=== PATIENT | male | born 1995 | race Caucasian/White ===

== ENCOUNTER 2024-08-04 17:07 | Inpatient (IN) | payer SELFPAY ==
[2024-08-04 17:09] VITALS: BP 103/77; PULSE 98; RESP 18; TEMP 36.6; O2SAT 100; BMI 20.3
--- NOTE | 2024-08-04 17:21 | EX.ED.DYSGE1 ---
HPI <DANISHA Oakley - Last Filed: 08/04/24 18:16> History of Present Illness Chief Complaint: Substance Abuse Narrative Narrative: 28-year-old male presents requesting detox from heroin. He states for the last year he has been smoking heroin. He states he smokes it almost all day long with last use yesterday morning. He denies IV drug use. He smokes 2 packs/day of cigarettes, denies alcohol use. He states he feels nauseous but otherwise has no symptoms. He has not gone through detox in the past. PFSH <DANISHA Oakley - Last Filed: 08/04/24 18:16> PFSH Allergy/AdvReac Type Severity Reaction Status Date / Time Penicillins Allergy Anaphylaxis Verified 08/04/24 17:09 Social History Smoking Status: Current every day smoker tobacco type: cigarettes ROS <DANISHA Oakley - Last Filed: 08/04/24 18:16> ROS ED ROS Narrative Constitutional: Negative for fever, chills, malaise. CVS: Negative for chest pain, palpitations. Respiratory: Negative for shortness of breath. GI: Positive for nausea. No vomiting. EXAM <DANISHA Oakley - Last Filed: 08/04/24 18:16> Physical Exam Narrative Exam Narrative: CONST: Patient sitting in no acute distress. EYES: Normal inspection. NECK: Normal inspection. RESP: No respiratory distress, CTAB. CVS: Regular rate and rhythm, no murmur, no gallop. ABD: Soft and nontender, no guarding or rebound, nondistended. SKIN: Color normal, no rash, warm, dry, intact. EXTREMITIES: Normal appearance, no pedal edema. NEURO: Alert and answering questions appropriately. PSYCH: Normal affect. Const Vital Signs: 08/04/24 17:09 Temperature 97.9 F Temperature Source Temporal Pulse Rate 98 Respiratory Rate 18 Blood Pressure 103/77 Blood Pressure Mean 85 Pulse Ox 100 Oxygen Delivery Method Room Air <Dr. Alise Mahajan DO - Last Filed: 08/04/24 17:31> Physical Exam Const Vital Signs: 08/04/24 17:09 Temperature 97.9 F Temperature Source Temporal Pulse Rate 98 Respiratory Rate 18 Blood Pressure 103/77 Blood Pressure Mean 85 Pulse Ox 100 Oxygen Delivery Method Room Air MDM <DANISHA Oakley - Last Filed: 08/04/24 18:16> MDM MDM Narrative Medical decision making narrative: 28-year-old male is here requesting detox from smoking heroin daily. No IV drug use. He appears well and nontoxic. Vital signs stable. He is calm and cooperative and has a benign exam. Screening labs including CBC and CMP are unremarkable. Urine tox is positive for amphetamines, cocaine, and cannabinoids. Alcohol level negative. In the department he was given Zofran ODT and a nicotine patch. I discussed the case with the hospitalist for admission. I have personally performed a face to face assessment of the patient and have reviewed the YIMI Note. I performed a substantive portion of the visit including all aspects of the following. My rogers findings include: History is [patient presents to the ER with complaint of of wanting to get off heroin. Patient states that he has been using daily for about a year. His last use was yesterday. Typically he smokes it. Denies IV drug use. He does smoke cigarettes. Denies alcohol use. He has no medical history otherwise. Denies feeling suicidal or homicidal. Currently just describes some mild nausea but no other significant symptoms.] Exam is [HEENT-PERRLA, EOMI. Cranial nerves II through XII grossly intact. TMs clear. Mucous membranes moist. No adenopathy. Cardiovascular-regular rate and rhythm without murmur or ectopy Lungs-clear to auscultation, chest wall stable without crepitus or subcu emphysema Abdomen-normoactive bowel sounds, soft, nontender, no rebound or rigidity, no peritoneal signs. Extremities-intact ?4, normal range of motion, normal pulses, atraumatic] Medical Decison Making [patient requesting detox from heroin. Clinically looks well. Will obtain basic labs as well as an alcohol and toxicology screen. Will discuss with hospitalist to evaluate for admission.] Other additions or changes: [None] Lab Data Labs: Laboratory Results - last 24 hr 08/04/24 17:25 WBC 7.1 RBC 5.32 Hgb 16.1 Hct 47.7 MCV 89.7 MCH 30.3 MCHC 33.8 RDW Std Deviation 42.7 RDW Coeff of Jabari 13.1 Plt Count 318 MPV 10.3 Immature Gran % (Auto) 0.300 Neut % (Auto) 65.2 Lymph % (Auto) 23.3 [place] % (Auto) 8.3 Eos % (Auto) 2.1 Baso % (Auto) 0.8 Absolute Neuts (auto) 4.7 Absolute Lymphs (auto) 1.66 Nucleated RBC % 0 Sodium 138 Potassium 3.7 Chloride 104 Carbon Dioxide 28.0 Anion Gap 6 BUN 12 Creatinine 0.91 Estim Creat Clear Calc 108.75 Est GFR (MDRD) Af Amer 128 Est GFR (MDRD) Non-Af 106 BUN/Creatinine Ratio 13.1 Glucose 123 H Calcium 9.0 Total Bilirubin 0.50 AST 19 ALT 22 Alkaline Phosphatase 67 Total Protein 7.7 Albumin 4.2 Globulin 3.5 Albumin/Globulin Ratio 1.2 Urine Opiates Screen NEGATIVE Urine Methadone Screen NEGATIVE Ur Barbiturates Screen NEGATIVE Ur Phencyclidine Scrn NEGATIVE Ur Amphetamines Screen POSITIVE H MDMA (Ecstasy) Screen NEGATIVE U Benzodiazepines Scrn NEGATIVE Urine Cocaine Screen POSITIVE H U Cannabinoids Screen POSITIVE H Ur Drug Screen Comment Ethyl Alcohol < 3.0 <Dr. Alise Mahajan, DO - Last Filed: 08/04/24 17:31> [facility] MDM Narrative Medical decision making narrative: I have personally performed a face to face assessment of the patient and have reviewed the YIMI Note. I performed a substantive portion of the visit including all aspects of the following. My rogers findings include: History is [patient presents to the ER with complaint of of wanting to get off heroin. Patient states that he has been using daily for about a year. His last use was yesterday. Typically he smokes it. Denies IV drug use. He does smoke cigarettes. Denies alcohol use. He has no medical history otherwise. Denies feeling suicidal or homicidal. Currently just describes some mild nausea but no other significant symptoms.] Exam is [HEENT-PERRLA, EOMI. Cranial nerves II through XII grossly intact. TMs clear. Mucous membranes moist. No adenopathy. Cardiovascular-regular rate and rhythm without murmur or ectopy Lungs-clear to auscultation, chest wall stable without crepitus or subcu emphysema Abdomen-normoactive bowel sounds, soft, nontender, no rebound or rigidity, no peritoneal signs. Extremities-intact ?4, normal range of motion, normal pulses, atraumatic] Medical Decison Making [patient requesting detox from heroin. Clinically looks well. Will obtain basic labs as well as an alcohol and toxicology screen. Will discuss with hospitalist to evaluate for admission.] Other additions or changes: [None] Lab Data Labs: Laboratory Results - last 24 hr 08/04/24 17:25 WBC 7.1 RBC 5.32 Hgb 16.1 Hct 47.7 MCV 89.7 MCH 30.3 MCHC 33.8 RDW Std Deviation 42.7 RDW Coeff of Jabari 13.1 Plt Count 318 MPV 10.3 Immature Gran % (Auto) 0.300 Neut % (Auto) 65.2 Lymph % (Auto) 23.3 [place] % (Auto) 8.3 Eos % (Auto) 2.1 Baso % (Auto) 0.8 Absolute Neuts (auto) 4.7 Absolute Lymphs (auto) 1.66 Nucleated RBC % 0 Sodium 138 Potassium 3.7 Chloride 104 Carbon Dioxide 28.0 Anion Gap 6 BUN 12 Creatinine 0.91 Estim Creat Clear Calc 108.75 Est GFR (MDRD) Af Amer 128 Est GFR (MDRD) Non-Af 106 BUN/Creatinine Ratio 13.1 Glucose 123 H Calcium 9.0 Total Bilirubin 0.50 AST 19 ALT 22 Alkaline Phosphatase 67 Total Protein 7.7 Albumin 4.2 Globulin 3.5 Albumin/Globulin Ratio 1.2 Urine Opiates Screen NEGATIVE Urine Methadone Screen NEGATIVE Ur Barbiturates Screen NEGATIVE Ur Phencyclidine Scrn NEGATIVE Ur Amphetamines Screen POSITIVE H MDMA (Ecstasy) Screen NEGATIVE U Benzodiazepines Scrn NEGATIVE Urine Cocaine Screen POSITIVE H U Cannabinoids Screen POSITIVE H Ur Drug Screen Comment Ethyl Alcohol < 3.0 Discharge Plan Triage Chief Complaint: Substance Abuse ED Midlevel Provider: Jocelyn Hughes ED Provider: Alise Mahajan Dx/Rx/DC Orders Clinical Impression: Heroin addiction, Desire for detoxification, Polysubstance abuse Primary Care Provider: Care Physician,No Primary Print Language: Arabic
[2024-08-04] MEDS: Ondansetron ODT 4 MG Tablet PO (17:26)
[2024-08-04 17:42] LABS: Absolute Lymphocyte Count 1.66 X10^3/uL (0.83-4.51); Absolute Neutrophil Count 4.7 X10^3/uL (2.0-7.7); Basophil# 0.06 X10^3/uL; Basophil% 0.8 % (0-1); Eosinophil# 0.15 X10^3/uL; Eosinophils% 2.1 % (0-5); Hematocrit 47.7 % (40-54); Hemoglobin 16.1 g/dL (13.0-16.5); Lymphocyte # 1.66 X10^3/ul (0.83-4.51); Lymphocyte % 23.3 % (19-41); Mean Corp Hgb Conc 33.8 g/dL (32-36); Mean Corpuscular Hgb 30.3 pg (27.0-32.0); Mean Corpuscular Volume 89.7 fL (80-94); Mean Platelet Vol. 10.3 fl (6.2-12.0); Monocyte# 0.59 X10^3/uL; Monocyte% 8.3 % (0-10); NRBC Flagged by Analyzer 0 % (0-5); Neutrophil # 4.65 X10^3/uL (2.7-7.7); Neutrophil % 65.2 % (47-70); Platelet Count 318 K/mm3 (150-450); RBC Distribution Width CV 13.1 % (11.6-14.6); RBC Distribution Width SD 42.7 fl (35.1-43.9); Red Blood Count 5.32 M/mm3 (4.6-6.2); White Blood Count 7.1 K/mm3 (4.4-11.0)
[2024-08-04 17:56] LABS: Alcohol, Blood (Medical)-Serum < 3.0 mg/dL
[2024-08-04 18:00] LABS: ALB/GLOB Ratio 1.2 RATIO (0.9-2.4); AST(SGOT) 19 U/L (15-37); Alanine Aminotransfer ALT/SGPT 22 U/L (16-61); Albumin, Serum 4.2 g/dL (3.2-5.0); Alkaline Phosphatase 67 U/L (45-117); Anion Gap 6 (5-15); BUN 12 mg/dL (7-18); BUN/Creat Ratio 13.1 RATIO (10-20); Chloride 104 mmol/L (98-107); Creatinine, Serum 0.91 mg/dL (0.70-1.30); EST Glomerular Filtration Rate 106 mL/min (>60); Est Glom Filt Rate - Afr Amer 128 mL/min (>60); Estimated Creatinine Clearance 108.75 ml/min; Globulin 3.5 g/dL (2.2-4.2); Glucose 123 mg/dL (74-106); Potassium 3.7 mmol/L (3.5-5.1); Protein, Total 7.7 g/dL (6.4-8.2); Sodium Level 138 mmol/L (136-145)
[2024-08-04 18:01] LABS: Amphetamine Urine VISTA POSITIVE (<1000 ng/mL); Barbiturate Urine VISTA NEGATIVE (< 200 ng/mL); Benzodiazepine Urine VISTA NEGATIVE (< 200 ng/mL); Cocaine Urine VISTA POSITIVE (< 300 ng/mL); Ecstacy Urine VISTA NEGATIVE (< 500 ng/mL); Methadone Urine VISTA NEGATIVE (< 300 ng/mL); PCP Urine VISTA NEGATIVE (< 25 ng/mL); THC Urine VISTA POSITIVE (< 50 ng/mL); Vista UDS pH Range 5
--- NOTE | 2024-08-04 18:15 | PCM.HP.STD ---
HPI - General General Date of Admission: 08/04/24 Date of Service: 08/04/24 Chief Complaint: Acute Opiate Withdrawal HPI Narrative The patient is a 28 y/o M w/ PMHx: Anxiety/Chronic insomnia, Tobacco use who presents to the [facility] ED on 08/04/24 with history of 1 year of persistent daily usage of heroin which she reports that he smokes unfortunately noting that he fell into a crowd and started to use drugs with them on a routine basis with desire for clean status with onset of acute opiate withdrawal with last dose the day prior with onset of abdominal cramping, general body aches, mild rhinorrhea, restlessness and fatigue prompting ED evaluation. Patient is interested in maintaining clean status. He does understand that he will need to transition away from the crowd he has been using substances with. Workup in the ED included T98, heart rate 99, BP 105/78, respiratory rate 16, 97% room air, CBC with WC 7.1, human 16.1, platelet 318 without marked shift, CMP with glucose 123 otherwise unremarkable, UDS with positive amphetamine/cocaine/cannabis, alcohol less than 3. In the ED patient ministered Zofran 4 mg p.o. x 1 and nicotine transdermal 21 mg patch x 1. [facility] Medical History (Updated 08/04/24 @ 18:[address] Estefani Villalobos MD) Chronic insomnia Anxiety Tobacco use Heroin addiction Polysubstance abuse Allergy/AdvReac Type Severity Reaction Status Date / Time Penicillins Allergy Anaphylaxis Verified 08/04/24 17:09 Family History (Updated 08/04/24 @ 18:[address] Estefani Villalobos MD) Brother Cancer Mother No problems noted. Father No problems noted. Surgical History (Updated 08/04/24 @ 18:[address] Estefani Villalobos MD) No history of previous surgery Social History (Updated 08/04/24 @ 18:[address] Estefani Villalobos MD) household members: family and other details: He lives with his parents. Smoking Status: Current every day smoker tobacco type: cigarettes Smoking packs per day: 2 Smoking cigarettes per day: 40.0 alcohol intake: never substance use type: heroin ROS ROS Narrative Admission Review of Systems: CONSTITUTIONAL: No weight loss, fever, chills, weakness or fatigue. HEENT: + Congestion, rhinorrhea. Eyes: No visual loss, blurred vision, double vision or yellow sclerae. Ears, Nose, Throat: No hearing loss, sneezing. SKIN: No rash or itching, lesions, wounds. CARDIOVASCULAR: No chest pain, chest pressure or chest discomfort, palpitations, edema, orthopnea, syncopal events. RESPIRATORY: No shortness of breath, cough or sputum, wheezing, hemoptysis. GASTROINTESTINAL: + Anorexia, mild nausea, abdominal cramping. No emesis, marked diarrhea, melena, BRBPR. GENITOURINARY: No dysuria, frequency, urgency or retention. NEUROLOGICAL: + Mild agitation, restlessness. No headache, dizziness, syncope, paralysis, ataxia, numbness or tingling in the extremities, focal weakness, change in bowel or bladder control, seizure. MUSCULOSKELETAL: No muscle, back pain, joint pain or stiffness. HEMATOLOGIC: No anemia, bleeding or bruising. LYMPHATICS: No enlarged nodes. No history of splenectomy. PSYCHIATRIC: + History of anxiety and insomnia. ENDOCRINOLOGIC: No reports of sweating, cold or heat intolerance. No polyuria or polydipsia. ALLERGIES: + History of anaphylaxis Vital Signs Vital Signs Vital Signs: 08/04/24 17:09 Temperature 97.9 F Temperature Source Temporal Pulse Rate 98 Respiratory Rate 18 Blood Pressure 103/77 Blood Pressure Mean 85 Pulse Ox 100 Oxygen Delivery Method Room Air Weight Weight: 137 lb 12.8 oz Body Mass Index (BMI) 20.3 Physical Exam Narrative Physical Examination: General: Awake, alert, oriented x 3 and cooperative, seated upright in the ED bed, restless, mildly agitated. Skin: Normal color, normal turgor, no icterus, no cyanosis except occasional very stage ecchymoses especially the extremities. HEENT: AT/NC, EOMI, PERRLA, dry MM, no carotid bruits or JVD noted. Lungs: CTA bilaterally, moderate effort, mild decrease BL bases, no rales, ronchi or wheezing. Heart: Tachycardic with regular rhythm; no gallop, rub audible. Abdomen: Soft, mild generalized discomfort but no rebound or guarding, ND, hyperactive BS, no appreciated HSM. Extremities: No cyanosis, clubbing, or edema, see skin. Neurological: Patient awake, alert, oriented as noted, cognitive function intact; pupils equally reactive to light and accommodation, cranial nerves grossly normal, moving all 4 extremities, no focal deficits, strength mildly to moderately globally decreased given acute presentation, restless, mildly agitated. Psychiatric: Affect appears restless, does admit to chronic insomnia and anxiety, currently no acute evidence of depressive or anxiety feelings. Results Lab / Micro Data 08/04/24 17:25 08/04/24 17:25 Labs: Laboratory Results - last 24 hr 08/04/24 17:25: WBC 7.1, RBC 5.32, Hgb 16.1, Hct 47.7, MCV 89.7, MCH 30.3, MCHC 33.8, RDW Std Deviation 42.7, RDW Coeff of Jabari 13.1, Plt Count 318, MPV 10.3, Immature Gran % (Auto) 0.300, Neut % (Auto) 65.2, Lymph % (Auto) 23.3, [place] % (Auto) 8.3, Eos % (Auto) 2.1, Baso % (Auto) 0.8, Absolute Neuts (auto) 4.7, Absolute Lymphs (auto) 1.66, Nucleated RBC % 0, Sodium 138, Potassium 3.7, Chloride 104, Carbon Dioxide 28.0, Anion Gap 6, BUN 12, Creatinine 0.91, Estim Creat Clear Calc 108.75, Est GFR (MDRD) Af Amer 128, Est GFR (MDRD) Non-Af 106, BUN/Creatinine Ratio 13.1, Glucose 123 H, Calcium 9.0, Total Bilirubin 0.50, AST 19, ALT 22, Alkaline Phosphatase 67, Total Protein 7.7, Albumin 4.2, Globulin 3.5, Albumin/Globulin Ratio 1.2, Urine Opiates Screen NEGATIVE, Urine Methadone Screen NEGATIVE, Ur Barbiturates Screen NEGATIVE, Ur Phencyclidine Scrn NEGATIVE, Ur Amphetamines Screen POSITIVE H, MDMA (Ecstasy) Screen NEGATIVE, U Benzodiazepines Scrn NEGATIVE, Urine Cocaine Screen POSITIVE H, U Cannabinoids Screen POSITIVE H, Ur Drug Screen Comment , Ethyl Alcohol < 3.0 Assessment & Plan Assessment/Plan (1) Opiate withdrawal: PLAN: Plan The patient is a 28 y/o M w/ PMHx: Anxiety/Chronic insomnia, Tobacco use who presents to the [facility] ED on 08/04/24 with history of 1 year of persistent daily usage of heroin which she reports that he smokes unfortunately noting that he fell into a crowd and started to use drugs with them on a routine basis with desire for clean status with onset of acute opiate withdrawal. #1. Acute Opiate Withdrawal: Will admit to MS, routine labs obtained as noted, will initiate and continue on protocol with tapering course of Subutex, as needed tylenol, ibuprofen, bowel regimen, gabapentin, Bentyl, Vistaril, methocarbamol, clonidine, PRN nightly trazodone for insomnia, IV fluids, IV antiemetics. Once patient clinically improved and completion of taper nearing will plan consultation with case management for transition to next level of rehabilitation care. #2. Polysubstance Abuse, although notes no IV drug use history concern for significant findings on UDS with many substances present: Discussed with patient and he is amenable to obtaining syphilis, HIV, hepatitis panel. Encouraged clean status with continued interventions as noted above. #3. Tobacco Abuse: Encouraged cessation, inpatient consultation per RT, NR if desired. #4. Anxiety, chronic insomnia: Will have nightly trazodone regimen for insomnia, would benefit from ongoing counseling and evaluation outpatient, case management/180 consulted as noted. #5. DVT prophylaxis: Low risk for type of presentation. Charges/Coding Visit Charges Inpatient E&M: 10210 Init Hosp L2
[2024-08-04 18:16] VITALS: BP 105/78; PULSE 99; RESP 16; TEMP 36.7; O2SAT 97
[2024-08-04 19:22] VITALS: BP 116/83; PULSE 71; RESP 18; O2SAT 100
[2024-08-04 19:46] VITALS: BMI 19.7
[2024-08-04] MEDS: Dicyclomine 10 MG Capsule 20 MG PO (20:13)
[2024-08-04 20:14] VITALS: BP 126/80; PULSE 73; RESP 16; TEMP 37.2; O2SAT 99
[2024-08-04 21:03] LABS: Hepatitis B Surface Antigen Non-Reactive (Nonreactive); Hepatitis C Antibody Non-Reactive (Nonreactive)
[2024-08-04 22:30] VITALS: BP 118/79; PULSE 89; RESP 18; TEMP 37.1; O2SAT 97
[2024-08-04] MEDS: hydrOXYzine PAM 25 MG Capsule 50 MG PO (23:02)
[2024-08-04] MEDS: traZODone 100 MG Tablet PO (23:02)
[2024-08-04] MEDS: Buprenorphine HCl 2 MG TAB.SUBL 4 MG SL (23:02)
[2024-08-05 00:15] VITALS: BP 103/78; PULSE 95; RESP 16; TEMP 36.5; O2SAT 96
[2024-08-05 03:07] LABS: Hepatitis B Surface Antibody Non-Reactive; Syphilis Antibodies Non-reactive
[2024-08-05 05:00] VITALS: BP 106/61; PULSE 67; RESP 16; TEMP 36.6; O2SAT 99
[2024-08-05] MEDS: Buprenorphine HCl 2 MG TAB.SUBL 4 MG SL (06:41)
[2024-08-05 09:00] VITALS: BP 106/63; PULSE 68; RESP 18; TEMP 36.2; O2SAT 100
--- NOTE | 2024-08-05 10:01 | PN.HOSP_ITS ---
Reason for Visit Reason for Visit: Diagnoses Opioid use, unspecified with withdrawal (08/04/24) Objective Data Objective Data Vital Signs: Vital Signs Temp Pulse Resp BP Pulse Ox O2 Del Method 97.2 F L 68 18 106/63 100 Room Air 08/05/24 09:00 08/05/24 09:00 08/05/24 09:00 08/05/24 09:00 08/05/24 09:00 08/05/24 09:00 Oxygen Delivery Method Room Air Weight: 133 lb 6.075 oz Body Mass Index (BMI) 19.7 Lab / Micro Data 08/04/24 17:25 08/04/24 17:25 Labs: Laboratory Results - last 24 hr 08/04/24 17:25: WBC 7.1, RBC 5.32, Hgb 16.1, Hct 47.7, MCV 89.7, MCH 30.3, MCHC 33.8, RDW Std Deviation 42.7, RDW Coeff of Jabari 13.1, Plt Count 318, MPV 10.3, Immature Gran % (Auto) 0.300, Neut % (Auto) 65.2, Lymph % (Auto) 23.3, [place] % (Auto) 8.3, Eos % (Auto) 2.1, Baso % (Auto) 0.8, Absolute Neuts (auto) 4.7, Absolute Lymphs (auto) 1.66, Nucleated RBC % 0, Sodium 138, Potassium 3.7, Chloride 104, Carbon Dioxide 28.0, Anion Gap 6, BUN 12, Creatinine 0.91, Estim Creat Clear Calc 108.75, Est GFR (MDRD) Af Amer 128, Est GFR (MDRD) Non-Af 106, BUN/Creatinine Ratio 13.1, Glucose 123 H, Calcium 9.0, Total Bilirubin 0.50, AST 19, ALT 22, Alkaline Phosphatase 67, Total Protein 7.7, Albumin 4.2, Globulin 3.5, Albumin/Globulin Ratio 1.2, Urine Opiates Screen NEGATIVE, Urine Methadone Screen NEGATIVE, Ur Barbiturates Screen NEGATIVE, Ur Phencyclidine Scrn NEGATIVE, Ur Amphetamines Screen POSITIVE H, MDMA (Ecstasy) Screen NEGATIVE, U Benzodiazepines Scrn NEGATIVE, Urine Cocaine Screen POSITIVE H, U Cannabinoids Screen POSITIVE H, Ur Drug Screen Comment , Ethyl Alcohol < 3.0, Syphilis Total Ab Non-reactive, Hep Bs Antigen Non-Reactive, Hep Bs Antibody Non- Reactive, Hepatitis C Antibody Non-Reactive Physical Exam Narrative Seen and examined. Patient admitted with opioid withdrawal symptoms. Currently restlessness, anxiety, insomnia. Denies IV or needle use or chronic KMP, hep C or HIV. Physical exam General: Alert, Oriented x3, Cooperative. Lean and thin. BMI 19.7 kg/m? HEENT: Atraumatic, PERRLA, EOMI, Normocephalic Oral: No Gingival or Mucosal Lesions/ Ulcerations Neck: Supple, No JVD, Negative Carotid Bruits Chest wall/Lungs: Air entry diminished in bilateral lung bases. No crepitation/rhonchi Cardiovascular: Regular rate, Regular Rhythm, Normal S1, Normal S2, No M/G/R Abdomen: Bowel Sounds Present, Soft, Non Tender, Non-Distended : No dysuria. No renal angle tenderness. No suprapubic tenderness. Extremities: No edema, Capillary Refill Less than 3 Seconds Skin: No rashes, No breakdown Musculoskeletal: No Tenderness to Palpation of Joints or Extremities Neurological: Cranial nerves II-XII grossly intact, DTR 2+/4. No acute focal neurological deficit. Psych/Mental Status: Flat affect, anxiety. Assessment & Plan Assessment/Plan (1) Opiate withdrawal: PLAN: Plan The patient is a 28 y/o M w/ PMHx: Anxiety/Chronic insomnia, Tobacco use who presents to the [facility] ED on 08/04/24 with history of 1 year of persistent daily usage of heroin which she reports that he smokes unfortunately noting that he fell into a crowd and started to use drugs with them on a routine basis with desire for clean status with onset of acute opiate withdrawal. #1. Acute Opiate Withdrawal syndrome with history of chronic opioid use and dependence: Patient is being admitted on PCU floor at the standard level of care. The patient is started on buprenorphine along with other adjunctive medications as needed for medical stabilization as per order set of opioid withdrawal syndrome.Patient also on trazodone, hydroxyzine, gabapentin as needed ordered. Advised quitting opioid use. manager image consult. 08/05: Continue buprenorphine. Denies chronic liver disease. #2. Polysubstance Abuse: Patient denies history of chronic hep B hep C or HIV. Diet needs to be worked up as outpatient. #3. Tobacco Abuse: Encouraged cessation, inpatient consultation per RT, NR if desired. #4. Anxiety, chronic insomnia: Continue trazodone regimen for insomnia, counseling, case management/180 consulted as noted. #5. DVT prophylaxis: Low risk for type of presentation. Charges/Coding Visit Charges Inpatient E&M: 98025 Subs Hosp L2
[2024-08-05 13:12] VITALS: O2SAT 98
[2024-08-05] MEDS: Buprenorphine HCl 2 MG TAB.SUBL SL ×2 (13:36→22:30)
[2024-08-05 15:00] VITALS: BP 112/65; PULSE 70; RESP 18; TEMP 36.2; O2SAT 97
[2024-08-05 20:48] VITALS: BP 107/71; PULSE 87; RESP 15; TEMP 36.6; O2SAT 98
[2024-08-06] MEDS: traZODone 100 MG Tablet PO ×2 (00:04→23:41)
[2024-08-06 04:05] VITALS: BP 92/51; PULSE 74; RESP 15; TEMP 36.2; O2SAT 98
[2024-08-06] MEDS: Buprenorphine HCl 2 MG TAB.SUBL SL ×3 (06:34→23:41)
[2024-08-06 10:32] VITALS: BP 102/34; PULSE 68; RESP 16; TEMP 36.6; O2SAT 98
--- NOTE | 2024-08-06 12:31 | ADDICTION ---
This communications writer met with PT to conduct ASAM, MSE, AUDIT assessments and to plan for d/c. PT A+Ox4 and participated actively. All assessments completed. PT plans to f/u with counseling services for follow-up treatment services. Resources were provided. PT did not indicate a need for transportation post d/c from [facility].
--- NOTE | 2024-08-06 16:14 | PN.HOSP_ITS ---
Reason for Visit Reason for Visit: Diagnoses Opioid use, unspecified with withdrawal (08/04/24) Objective Data Objective Data Vital Signs: Vital Signs Temp Pulse Resp BP Pulse Ox O2 Del Method 97.8 F 68 16 102/34 L 98 Room Air 08/06/24 10:32 08/06/24 10:32 08/06/24 10:32 08/06/24 10:32 08/06/24 10:32 08/06/24 14:47 Oxygen Delivery Method Room Air Weight: 133 lb 6.075 oz Body Mass Index (BMI) 19.7 Intake & Output: Intake and Output for Last 24 Hours 08/04/24 08/05/24 08/06/24 23:59 23:59 23:59 Intake Total 1000 / 1250 250 / 250 Balance 1000 / 1250 250 / 250 Lab / Micro Data 08/04/24 17:25 08/04/24 17:25 Physical Exam Narrative Seen and examined. Patient admitted with opioid withdrawal symptoms. His symptoms are controlled. On third day. Denies hallucinations, psychotic symptoms. Denies IV or needle use or chronic KMP, hep C or HIV. Physical exam General: Alert, Oriented x3, Cooperative. Lean and thin. BMI 19.7 kg/m? HEENT: Atraumatic, PERRLA, EOMI, Normocephalic Oral: No Gingival or Mucosal Lesions/ Ulcerations Neck: Supple, No JVD, Negative Carotid Bruits Chest wall/Lungs: Air entry diminished in bilateral lung bases. No crepitation/rhonchi Cardiovascular: Regular rate, Regular Rhythm, Normal S1, Normal S2, No M/G/R Abdomen: Bowel Sounds Present, Soft, Non Tender, Non-Distended : No dysuria. No renal angle tenderness. No suprapubic tenderness. Extremities: No edema, Capillary Refill Less than 3 Seconds Skin: No rashes, No breakdown Musculoskeletal: No Tenderness to Palpation of Joints or Extremities Neurological: Cranial nerves II-XII grossly intact, DTR 2+/4. No acute focal neurological deficit. Psych/Mental Status: Flat affect, anxiety. Assessment & Plan Assessment/Plan (1) Opiate withdrawal: PLAN: Plan The patient is a 28 y/o M w/ PMHx: Anxiety/Chronic insomnia, Tobacco use who presents to the [facility] ED on 08/04/24 with history of 1 year of persistent daily usage of heroin which she reports that he smokes unfortunately noting that he fell into a crowd and started to use drugs with them on a routine basis with desire for clean status with onset of acute opiate withdrawal. #1. Acute Opiate Withdrawal syndrome with history of chronic opioid use and dependence: Patient is being admitted on PCU floor at the standard level of care. The patient is started on buprenorphine along with other adjunctive medications as needed for medical stabilization as per order set of opioid withdrawal syndrome.Patient also on trazodone, hydroxyzine, gabapentin as needed ordered. Advised quitting opioid use. senior program manager consult. 08/05: Continue buprenorphine. Denies chronic liver disease. 08/06: No acute issues. Withdrawal symptoms are well-controlled. Discharge tomorrow #2. Polysubstance Abuse: Patient denies history of chronic hep B hep C or HIV. Diet needs to be worked up as outpatient. #3. Tobacco Abuse: Encouraged cessation, inpatient consultation per RT, NR if desired. #4. Anxiety, chronic insomnia: Continue trazodone regimen for insomnia, counseling, case management/180 consulted as noted. #5. DVT prophylaxis: Low risk for type of presentation. Charges/Coding Visit Charges Inpatient E&M: 11593 Subs Hosp L2
[2024-08-06 16:25] VITALS: BP 119/72; PULSE 88; RESP 16; TEMP 37; O2SAT 98
[2024-08-06 22:00] VITALS: BP 112/75; PULSE 78; RESP 16; TEMP 36.6; O2SAT 100
[2024-08-06 22:09] LABS: HIV - WCH Non-Reactive (Nonreactive)
[2024-08-07 06:00] VITALS: BP 124/78; PULSE 78; RESP 16; TEMP 36.7; O2SAT 96
[2024-08-07 07:49] VITALS: O2SAT 96
[2024-08-07] MEDS: Buprenorphine HCl 2 MG TAB.SUBL SL (09:59)
[2024-08-07 10:05] VITALS: BP 109/62; PULSE 80; RESP 16; TEMP 36.6; O2SAT 98
--- NOTE | 2024-08-07 10:34 | DCINST_ITS ---
Discharge Instructions DC O2, CPAP, BIPAP needs Home O2 Discharge instructions: No Follow Up Care Test Results: Test results from this visit will be discussed in further detail at your follow- up appointment, if applicable. Discharge Plan Admission Admit Date/Time: 08/04/24 18:15 Attending Provider: Ranjith Burroughs Primary Care Provider: Care Physician,No Primary Consulting Providers: Estefani Villalobos Discharge Orders/Prescriptions Prescriptions: New nicotine 21 mg/24 hr Patch 24 Hour 21 mg transdermal DAILY Qty: 28 0RF Referrals / Follow Up: Care Physician,No Primary [Primary Care Provider] - Disposition Disposition (needs filled in before D/C Order can be placed): Home, Self Care
[2024-08-07 11:51] VITALS: BP 103/70; PULSE 90; RESP 16; TEMP 36.8; O2SAT 98
--- NOTE | 2024-08-07 11:51 | DS.PCM_ITS ---
Providers Date of Admission: 08/04/24 Date of Discharge: 08/07/24 Primary Care Physician: No Primary Care Phys Reason For Visit: ACUTE OPIATE WITHDRAWAL Diagnosis Discharge Diagnosis (1) Opiate withdrawal: Status: Acute Code(s): F11.93 - Opioid use, unspecified with withdrawal Plan The patient is a 28 y/o M w/ PMHx: Anxiety/Chronic insomnia, Tobacco use who presents to the [facility] ED on 08/04/24 with history of 1 year of persistent daily usage of heroin which she reports that he smokes unfortunately noting that he fell into a crowd and started to use drugs with them on a routine basis with desire for clean status with onset of acute opiate withdrawal. #1. Acute Opiate Withdrawal syndrome with history of chronic opioid use and dependence: Patient is being admitted on PCU floor at the standard level of care. The patient is started on buprenorphine along with other adjunctive medications as needed for medical stabilization as per order set of opioid withdrawal syndrome.Patient also on trazodone, hydroxyzine, gabapentin as needed ordered. Advised quitting opioid use. canvassing manager consult. 08/05: Continue buprenorphine. Denies chronic liver disease. 08/06: No acute issues. Withdrawal symptoms are well-controlled. Discharge tomorrow 08/07: Patient's withdrawal symptoms resolved. Patient is being discharged today. #2. Polysubstance Abuse: Patient denies history of chronic hep B hep C or HIV. Diet needs to be worked up as outpatient. #3. Tobacco Abuse: Encouraged cessation, inpatient consultation per RT, NR if desired. 08/07, prescription for nicotine patch given. #4. Anxiety, chronic insomnia: Continue trazodone regimen for insomnia, counseling, case management/180 consulted as noted. #5. DVT prophylaxis: Low risk for type of presentation. Discharge medication reconciliation done. Discharge follow-up instructions completed. Discharge process discussed with the patient and all questions were answered to patient's satisfaction. Follow with PCP in 1 to 2 weeks Total time spent, exact 35 minutes on discharge meds reconciliation, examination, coordination of care with nurses and ancillary staff, review of imaging and blood test and discussion with the patient on follow-up instructions. Medications at Discharge Home Medications nicotine 21 mg/24 hr daily transdermal patch 21 mg transdermal DAILY #28 ea 08/07/24 Physical Exam Narrative Seen and examined. Patient admitted with opioid withdrawal symptoms. Withdrawal symptoms have resolved. Denies hallucinations, psychotic symptoms. Denies IV or needle use or chronic KMP, hep C or HIV. Physical exam General: Alert, Oriented x3, Cooperative. Lean and thin. BMI 19.7 kg/m? HEENT: Atraumatic, PERRLA, EOMI, Normocephalic Oral: No Gingival or Mucosal Lesions/ Ulcerations Neck: Supple, No JVD, Negative Carotid Bruits Chest wall/Lungs: Air entry equal in bilateral lung bases. No crepitation/rhonchi Cardiovascular: Regular rate, Regular Rhythm, Normal S1, Normal S2, No M/G/R Abdomen: Bowel Sounds Present, Soft, Non Tender, Non-Distended : No dysuria. No renal angle tenderness. No suprapubic tenderness. Extremities: No edema, Capillary Refill Less than 3 Seconds Skin: No rashes, No breakdown Musculoskeletal: No Tenderness to Palpation of Joints or Extremities Neurological: Cranial nerves II-XII grossly intact, DTR 2+/4. No acute focal neurological deficit. Psych/Mental Status: Flat affect, appropriate behavior Weight / BMI Weight Weight: 133 lb 6.075 oz Body Mass Index (BMI) 19.7 ABG / Lab / Microbiology Data 08/04/24 17:25 08/04/24 17:25 Laboratory: Laboratory Results - last 24 hr 08/04/24 17:25: HIV 1&2 Antibody Non-Reactive D/C Instructions DC O2, CPAP, BIPAP Needs Home O2 Discharge instructions: No Meaningful Use Info Meaningful Use Meaningful Use Diagnoses (Choose all that apply): None applicable Ischemic Stroke Statin Dosing Therapy Reference: STATIN DOSE THERAPY REFERENCE: * Patients > 75 years receive moderate or high dose statin therapy. * Patients 75 years or YOUNGER should receive HIGH intensity statin dose unless contraindicated. You will be required to document reason for non-treatment if statin daily dose does not meet guidelines. HIGH DOSE STATIN THERAPY DAILY Atorvastatin > than or = to 40 mg Rosuvastatin > than or = to 20 mg Amlodipine + Atorvastatin > than or = to 2.5/40 mg Ezetimibe + Simvastatin 10/80 mg Simvastatin 80mg Discharge Plan Admission Admit Date/Time: 08/04/24 18:15 Attending Provider: Ranjith Burroughs Primary Care Provider: Care Physician,No Primary Consulting Providers: Estefani Villalobos Discharge Orders/Prescriptions Prescriptions: New nicotine 21 mg/24 hr Patch 24 Hour 21 mg transdermal DAILY Qty: 28 0RF Referrals / Follow Up: Care Physician,No Primary [Primary Care Provider] - Disposition Disposition (needs filled in before D/C Order can be placed): Home, Self Care Charges/Coding Visit Charges Inpatient E&M: [id number] Disch Hosp >30min
--- NOTE | 2024-08-07 12:57 | NURSING ---
Patient being discharged, offered Narcan Kit and teaching, Patient declined at this time.
== END 2024-08-07 16:13 | disposition home or self-care (01) | DRG 897 ==
LOC: ED 18:22 → PCU 19:02
PROVIDERS: Physician Assistant; Admitting Provider Family Medicine; Emergency Provider Emergency Medicine; Visit Provider Internal Medicine
DX: F11.23 Opioid dependence with withdrawal (principal); F17.210 Nicotine dependence, cigarettes, uncomplicated; F19.10 Other psychoactive substance abuse, uncomplicated; F41.9 Anxiety disorder, unspecified; Z79.891 Long term (current) use of opiate analgesic; G47.00 Insomnia, unspecified
CPT/HCPCS: 80053; 80307; 82077; 85025; 86703; 86706; 86780; 86803; 87340; 97802; 99284; 99406